=== PATIENT | female | born 1990 | race Caucasian/White ===

== ENCOUNTER 2019-11-11 09:17 | Emergency (ER) | payer OTHER, SELFPAY ==
[2019-11-11 09:25] VITALS: BP 149/108; PULSE 90; RESP 20; TEMP 36.6; O2SAT 100
--- NOTE | 2019-11-11 09:32 | ED.DENTAL ---
HPI - Dental/Oral General Chief complaint: Dental/Oral Stated complaint: broken tooth Time Seen by Provider: 11/11/19 09:34 Source: patient and RN notes reviewed Mode of arrival: ambulatory Limitations: no limitations History of Present Illness HPI Narrative: 29-year-old female presents with concern for dental pain. Reports chronic left upper dental pain with a broken tooth. Reports taking Tylenol with no relief. Reports she will not take ibuprofen due to the risk of ibuprofen making coronavirus worse. She denies any symptoms of coronavirus, shortness of breath, cough, fever. Reports she has been told she needs to see an oral surgeon. MD Complaint: tooth pain Teeth map: 1. Broken tooth Related Data Allergies Allergy/AdvReac Type Severity Reaction Status Date / Time iodine Allergy Unknown Rash Verified 11/11/19 09:35 meloxicam Allergy Unknown Rash Verified 11/11/19 09:35 tramadol Allergy Unknown Rash Verified 11/11/19 09:35 aripiprazole AdvReac Unknown Other Verified 11/11/19 09:35 Review of Systems Review of Systems: Narrative: CONSTITUTIONAL: Denies malaise, chills, sweats, or fever. ENT: Denies rhinorrhea, congestion, sinus pain, otalgia or sore throat. Reports left upper dental pain RESPIRATORY: Denies cough or dyspnea. SKIN: Denies rash or itching. Denies facial swelling All systems reviewed & are unremarkable except as noted in HPI and below PMFSH Comments At time of signature, agree with nursing past medical, surgical, social and family history. There is no relevant family history pertinent to the presenting complaint Exam Narrative: Exam Narrative: GENERAL: Well-appearing, well-nourished, and in no acute distress. HEAD: Normocephalic, atraumatic. EYES: PERRLA, conjunctivae clear ENT: Nares clear. Mucous membranes moist. Oropharynx without edema, erythema or lesions. Tooth #16 broken with no surrounding erythema, edema, periapical abscess, no facial swelling. NECK: Supple. CHEST: No respiratory distress. Clear to auscultation. No bony deformities, no asymmetry. Speaks in full sentences. HEART: Regular rate and rhythm. No murmur heard. SKIN: Warm, dry, no rash. NEURO: Alert and oriented x3. PSYCH: Normal mood and affect Course Course Emergency Course: Patient is aware of diagnosis, understands and agrees to treatment plan. Anticipatory guidance given. Patient agrees to follow-up as directed and is aware of reasons to seek care at the emergency department. Portions of this record may have been created with voice recognition software Vital Signs Vital signs: Vital Signs Temperature 97.9 F 11/11/19 09:25 Pulse Rate 90 11/11/19 09:25 Respiratory Rate 20 11/11/19 09:25 Blood Pressure 149/108 H 11/11/19 09:25 Pulse Oximetry 100 11/11/19 09:25 Temperature 97.9 F 11/11/19 09:25 Pulse Rate 90 11/11/19 09:25 Respiratory Rate 20 11/11/19 09:25 Blood Pressure 149/108 H 11/11/19 09:25 Pulse Oximetry 100 11/11/19 09:25 Reviewed. MDM - Dental/Oral MDM Narrative Medical decision making narrative: Patients pain and complaint coupled with physical findings are consistant with dentalgia. There are no focal signs of space occupying lesions that are compromising to the airway; no dysphagia, odynophagia, dysphonia, or dyspnea. No uvular deviation or soft palate edema. Patient is non-toxic appearing. The floor of the mouth is soft with no signs of Wayne's Angina; no induration below mandible, no neck pain. Patient is without trismus or drooling and able to swallow secretions. Patient is felt appropriate for discharge home with dental follow up. The patient is manifesting multiple drug seeking attributes. Prior medical records, if available, were reviewed. Discussed with the patient that opioid pain medication will not be given during the express care visit. Alternative analgesia is offered and REFUSED. Critical Care Time Critical Care Time Critical Care Time: No Discharge Plan
== END 2019-11-11 09:44 | disposition home or self-care (01) ==
PROVIDERS: Emergency Provider Nurse Practitioner; PCP Internal Medicine
DX: K08.89 Other specified disorders of teeth and supporting structures (principal)
CPT/HCPCS: 99213; G0463